=== PATIENT | male | born 1995 | race Caucasian/White ===

== ENCOUNTER 2018-12-04 19:49 | Emergency (ER) | payer BC ==
[~2018-12-04] VITALS: Ht 177.8 cm; Wt 81.6 kg
--- NOTE | 2018-12-04 21:02 | RAD ---
Indication:Injury. Left knee pain. TECHNIQUE: 4 views of the left knee COMPARISON:None FINDINGS/ impression: No acute fracture or dislocation. Trace suprapatellar effusion. No arthritis. Electronically signed by: Kendell Gayle DO (12/04/2018 8:59 PM) [facility]
[2018-12-04] MEDS ORDERED: DICL50TA2 PO (21:18)
[2018-12-04] MEDS ORDERED: METH4TAB2 PO (21:18)
--- NOTE | 2018-12-04 21:18 | PHYS DOC ---
Past Medical History Past Medical History: Other Additional Past Medical Histor: NF Past Surgical History: No Surgical History Alcohol Use: None Drug Use: None Adult General Chief Complaint Chief Complaint: KNEE INJURY HPI HPI Patient is a 22 year old male with no significant medical history who presents to the ED today concerned he could've dislocated his left knee. Patient states he was playing football when he heard a pop sound from the left knee, he states he ended up falling on his left knee. Patient denies any loss of consciousness. Describes the pain as throbbing and mild to moderate worse on weight bearing Review of Systems Review of Systems Constitutional: Denies fever or chills [] Musculoskeletal: Reports left knee pain Integument: Denies rash or skin lesions [] Neurologic: Denies headache, focal weakness or sensory changes [] All other systems were reviewed and found to be within normal limits, except as documented in this note. Allergies Allergies Allergies Coded Allergies Type Severity Reaction Last Updated Verified No Known Drug Allergies 12/04/18 No Physical Exam Physical Exam Constitutional: Well developed, well nourished, no acute distress, non-toxic appearance. [] Skin: Warm, dry, no erythema, no rash. [] Back: No tenderness, no CVA tenderness. [] Extremities: Left knee with no obvious deformity, small amount of soft tissue swelling noted on the anterior aspect of the knee. Tenderness on the medial as well as lateral aspect. Full range of motion to the left knee, no laxity, negative Vicky sign, negative motor sign, negative anterior-posterior drawer sign. +2 left pedal pulse. Cap refill less than 2 seconds and left lower extremity. Sensation intact Neurologic: Alert and oriented X 3, normal motor function, normal sensory function, no focal deficits noted. [] Psychologic: Affect normal, judgement normal, mood normal. [] Current Patient Data Vital Signs Vital Signs Date Time Temp Pulse Resp B/P (MAP) Pulse Ox O2 Delivery O2 Flow Rate FiO2 12/04/18 20:40 95 17 124/70 (88) 100 Room Air 12/04/18 20:06 98.3 98.3 EKG EKG [] Radiology/Procedures Radiology/Procedures []PROCEDURE: KNEE LEFT 4V Indication:Injury. Left knee pain. TECHNIQUE: 4 views of the left knee COMPARISON:None FINDINGS/ impression: No acute fracture or dislocation. Trace suprapatellar effusion. No arthritis. Electronically signed by: Kendell Garcia DO (12/04/2018 8:59 PM) [facility] DICTATED and SIGNED BY: KENDELL GARCIA DO DATE: 12/04/182058 Course & Med Decision Making Course & Med Decision Making Pertinent Labs and Imaging studies reviewed. (See chart for details) This is a 22-year-old male patient presenting to the ED today complaining of left knee pain and be living he dislocated his knee playing football. Left knee with no obvious deformity. Left knee x-rays interpreted by radiologist are negative for any acute findings. Immobilizer provided by the ED RN, neurovascular exam is intact. Ice elevation encouraged. Crutches provided. Discharged with Medrol Dosepak and diclofenac. Follow-up with orthopedic doctor in one week if pain continues. Dragon Disclaimer Dragon Disclaimer This electronic medical record was generated, in whole or in part, using a voice recognition dictation system. Departure Departure Impression: Primary Impression: Left knee sprain Disposition: HOME, SELF-CARE Condition: STABLE Referrals: UNKNOWN PCP NAME (PCP) LYDIA MAK MD Follow-up in one week Patient Instructions: Knee Sprain, [id number] Additional Instructions: You were evaluated in the emergency room for left knee pain, your left knee x- rays were negative for any acute findings. Try to ice and elevate the extremity. Follow-up with the provided orthopedic doctor in one week. Take the prescribed medications as ordered. Scripts Methylprednisolone (MEDROL) 4 Mg Tab.ds.pk 1 PKG PO UD, #1 PKG Prov: BRYAN WAKEFIELD APRN 12/04/18 Diclofenac Potassium (DICLOFENAC POTASSIUM) 50 Mg Tablet 1 TAB PO BID, #20 TAB 0 Refills Prov: BRYAN WAKEFIELD APRN 12/04/18 Problem Qualifiers Primary Impression: Left knee sprain Encounter type: initial encounter Involved ligament of knee: unspecified ligament Qualified Codes: S83.92XA - Sprain of unspecified site of left knee, initial encounter BRYAN WAKEFIELD APRN Dec 04, 2018 21:18
[2018-12-04 21:30] VITALS: BP 133/60
== END 2018-12-04 21:34 | disposition home or self-care (01) ==
LOC: ER 19:49
DX: S83.92XA Sprain of unspecified site of left knee, initial encounter (principal); X50.9XXA Other and unspecified overexertion or strenuous movements or postures, initial encounter; Y93.89 Activity, other specified; Y92.89 Other specified places as the place of occurrence of the external cause; Y99.8 Other external cause status
CPT/HCPCS: 29505; 73564; 99284-25